=== PATIENT | male | born 1990 | race African-American/Black ===

== ENCOUNTER 2020-08-29 14:49 | Emergency (ER) | payer OTHER ==
[2020-08-29 15:10] VITALS: BP 127/67; PULSE 112; TEMP 98.6; BMI 23.1
--- OUTSIDE RECORDS SUMMARY | 2020-08-29 15:26 | XMS ---
:1990 Author Organization [facility] Support Name Relationship Address Phone [facility] Unavailable [phone] [place] [address] [place] BROTHER [address] [place] [address] Re-disclosure Warning The records that you are about to access may contain information from federally- assisted alcohol or drug abuse programs. If such information is present, then the following federally mandated warning applies: This information has been disclosed to you from records protected by federal confidentiality rules (42 CFR part 2). The federal rules prohibit you from making any further disclosure of this information unless further disclosure is expressly permitted by the written consent of the person to whom it pertains or as otherwise permitted by 42 CFR part 2. A general authorization for the release of medical or other information is NOT sufficient for this purpose. The Federal rules restrict any use of the information to criminally investigate or prosecute any alcohol or drug abuse patient.The records that you are about to access may contain highly sensitive health information, the redisclosure of which is protected by Article 27-F of the [facility] Public Health law. If you continue you may haveaccess to information: Regarding HIV / AIDS; Provided by facilities licensed or operated by the [facility] Office of Mental Health; or Provided by the [facility] Office for People With Developmental Disabilities. If such information is present, then the following [facility] mandated warning applies: This information has been disclosed to you from confidential records which are protected by state law. State law prohibits you from making any further disclosure of this information without the specific written consent of the person to whom it pertains, or as otherwise permitted by law. Any unauthorized further disclosure in violation of state law may result in a fine or long-term sentence or both. A general authorization for the release of medical or other information is NOT sufficient authorization for further disclosure. Insurance Providers Payer name Policy type Policy ID Covered Covered democrat's Policy P dejon / Coverage democrat ID relationship to [employer] [id number]
--- NOTE | 2020-08-29 15:32 | PDOC ---
History of Present Illness - General Chief Complaint: SIRS, Suspected/Possible Stated Complaint: FEVER, SORETHROAT Time Seen by Provider: 08/29/20 15:19 History Source: Patient Exam Limitations: No Limitations - History of Present Illness Initial Comments: 08/29/20 15:32 . 30 yr old female presents to ED with complaints of sore throat and low-grade temperature for the past 2 days. Patient states he went to see melanie LAYTON which was negative. Pt denies Recent travel, recent illness, medical. Is this a multiple visit Asthma Patient?: No Timing/Duration: reports: other Severity: reports: mild Associated Symptoms: reports: fever/chills, sore throat Past History - Travel History Traveled outside of the country in the last 30 days: No Close contact w/someone who was outside of country & ill: No - Medical History Allergies/Adverse Reactions: Allergies Allergy/AdvReac Type Severity Reaction Status Date / Time No Known Allergies Allergy Verified 08/29/20 15:07 Home Medications: Ambulatory Orders Amoxicillin - [Amoxicillin 500mg Capsule -] 500 mg PO BID #20 capsule 08/29/20 - Psycho-Social/Smoking History Patient Lives Alone: No Lives with/in: spouse/SO Smoking History: Never smoked - Substance Abuse Hx (Audit-C & DAST Scrn) How often the patient has a drink containing alcohol: Never Score: In Men: 4 or > Positive; In Women: 3 or > Positive: 0 Screen Result (Pos requires Nsg. Audit-10AR): Negative Review of Systems - Review of Systems Able to Perform ROS?: No Is the patient limited Uzbek proficient: No Constitutional: No: Symptoms Reported HEENTM: Yes: Throat Pain Respiratory: No: Symptoms reported Cardiac (ROS): No: Symptoms Reported ABD/GI: No: Symptoms Reported : No: Symptoms Reported Musculoskeletal: No: Symptoms Reported Integumentary: No: Symptoms Reported Neurological: No: Symptoms reported Hematologic/Lymphatic: No: Symptoms Reported *Physical Exam - Vital Signs Last Vital Signs Temp Pulse Resp BP Pulse Ox 98.6 F 112 H 18 127/67 100 08/29/20 15:08 08/29/20 15:08 08/29/20 15:08 08/29/20 15:08 08/29/20 15:08 - Physical Exam General Appearance: Yes: Nourished, Appropriately Dressed. No: Apparent Distress HEENT: positive: Pharyngeal Erythema (bilateral), Tonsillar Exudate. negative: Pale Conjunctivae Neck: positive: Supple Respiratory/Chest: positive: Lungs Clear, Normal Breath Sounds. negative: Respiratory Distress, Accessory Muscle Use Cardiovascular: positive: Regular Rhythm, Tachycardia. negative: Murmur Gastrointestinal/Abdominal: positive: Soft. negative: Tenderness Integumentary: positive: Normal Color, Warm, Moist Neurologic: positive: Motor Strength 5/5 (ambulatory) Medical Decision Making - Medical Decision Making 08/29/20 15:41 sore throat and Fever. Patient was a Covid yesterday which was negative. Exam: Patient with exudate bilaterally with 1+ erythematous tonsils. Plan: Rapid strep sent Discharge - Discharge Information Problems reviewed: Yes Clinical Impression/Diagnosis: Tonsillitis Condition: Good Disposition: HOME - Follow up/Referral Referrals: Saman Huerta MD [Primary Care Provider] - - Patient Discharge Instructions Patient Printed Discharge Instructions: DI for Pharyngitis/Tonsillopharyngitis -- Adult Additional Instructions: Take antibiotica As prescribed. Take Motrin or Tylenol for discomfort. Eat soft nonabrasive foods. - Post Discharge Activity
== END 2020-08-29 16:13 | disposition home or self-care (01) ==
LOC: JERFT 14:49
DX: J03.90 Acute tonsillitis, unspecified (principal)
CPT/HCPCS: 87070; 87077; 87880; 99284-25